=== PATIENT | female | born 1945 | race Caucasian/White ===

== ENCOUNTER 2023-01-31 12:04 | Emergency (ER) | payer OTHER ==
[2023-01-31 12:19] VITALS: TEMP 98.7; BMI 26.2
[2023-01-31 13:04] VITALS: BP 127/54; PULSE 80; RESP 16
[2023-01-31 13:14] LABS: HEMOGLOBIN 12.6 G/dL (10.7-15.3); MCH 29.7 pg (25.7-33.7); MCHC 33.9 g/dl (32.0-36.0); MEAN CELL VOLUME 87.5 fl (80-96); MEAN PLT VOLUME 9.3 fl (7.5-11.1); PLATELET COUNT 232.3 10^3/uL (134-434); RBC 4.23 10^6/uL (3.60-5.2); RDW 14.1 % (11.6-15.6); WHITE BLOOD COUNT 10.5 10^3/uL (4.0-10.8)
[2023-01-31 13:17] LABS: ALBUMIN 4.1 g/dl (3.4-5.0); BILIRUBIN,TOTAL 0.8 mg/dl (0.2-1); BLOOD UREA NITROGEN 20.5 mg/dl (7-18); CALCIUM 8.9 mg/dl (8.5-10.1); CREATININE 0.9 mg/dl (0.6-1.3); SGOT/AST 27.7 U/L (15-37); TOT PROT 6.8 g/dl (6.4-8.2)
[2023-01-31 13:22] LABS: POTASSIUM 4.3 mmol/L (3.5-5.1)
[2023-01-31 13:36] LABS: EPITHELIAL CELLS FEW /hpf
== END 2023-01-31 14:45 | disposition home or self-care (01) ==
LOC: FER 12:04
DX: R00.2 Palpitations (principal); R42 Dizziness and giddiness
CPT/HCPCS: 36415; 80053; 81003; 81015; 84439; 84443; 84484; 85027; 87086; 93005; 99284-25